=== PATIENT | female | born 1970 | race Caucasian/White ===

== ENCOUNTER 2016-06-16 12:16 | Emergency (ER) | payer MEDICARE, MEDICAID ==
--- OUTSIDE RECORDS SUMMARY | 2016-06-16 12:57 | XMS REPORT | Summary of Care ---
:1970 Author Organization [facility] Address [address] [place] [address] Care Team Providers Name Role Phone Janet Waggoner Primary Care Physician Encounter Date(s): 09/22/15 - 09/22/15 [facility], [address] [place], [place] [address] Discharge Diagnosis: Cellulitis of leg, right Discharge Disposition: 01 Discharged to Home or Self Care Attending Physician: Jesse Graves MD Referring Physician: Jesse Graves MD Vital Signs Most recent to oldest [Reference Range]: 1 Temperature Tympanic [36.6-38.1 DegC] 37.5 DegC (09/22/15 11:33 AM) Temperature C to F 99.5 (09/22/15 11:33 AM) Peripheral Pulse Rate [60-100 bpm] 105 bpm *HI* (09/22/15 11:33 AM) SpO2 98 % (09/22/15 11:33 AM) Blood Pressure [90-130/60-90 mmHg] 115/69mmHg (09/22/15 11:33 AM) Mean Arterial Pressure, Cuff 84 mmHg (09/22/15 11:33 AM) Most recent to oldest [Reference Range]: 1 Height/Length Measured 172 cm (09/22/15 11:33 AM) Weight Dosing 113.70 kg1 (09/22/15 11:36 AM) Weight Measured 113.7 kg (09/22/15 11:33 AM) BSA Measured 2.24 m2 (09/22/15 11:33 AM) Body Mass Index Measured 38.43 kg/m2 (09/22/15 11:33 AM) 1Result Comment: This result was because the dosing weight was either not entered or it is>30 days old. This result is based off: Weight Measured September 22, 2015 11:33:00 CDT by Helen Briones Problem List Condition Effective Dates Status Health Status Informant Arthritis(Confirmed) Active Depression(Confirmed) Active Diabetes mellitus(Confirmed) Active Leg edema, left(Confirmed) Active Osteoarthritis(Confirmed) Active Thyroid disease(Confirmed) Active Allergies, Adverse Reactions, Alerts No Known Allergies Medications Abilify 2 mg, Oral, Daily, 0 Refill(s) Start Date: 08/09/13 Status: Orderedamitriptyline 10 mg oral tablet 1 tab(s), Oral, BID, # 270 tab(s), 0 Refill(s), Start Date: 11/19/14 6:51:00 CDT Start Date: 11/19/14 Status: Orderedbaclofen infuse (3.75MCG/H) by cont intrathecal if route (90mcg/day), 0 Refill(s) Special Instructions: infuse (3.75MCG/H) by cont intrathecal if route (90mcg/day ) Start Date: 08/09/13 Stop Date: 10/16/13 Status: Discontinuedbaclofen 10 mg oral tablet 1 tab(s), Oral, TID, # 270 tab(s), 0 Refill(s) Start Date: 10/16/13 Stop Date: 12/06/13 Status: CompletedBactrim DS 800 mg-160 mg oral tablet 1 tab(s), Oral, BID, X 14 days, # 28 tab(s), 0 Refill(s), Start Date: 09/10/15 10:28:00 CDT, Pharmacy: [place] Start Date: 09/10/15 Stop Date: 09/16/15 Status: DiscontinuedBactrim DS 800 mg-160 mg oral tablet 2 tab(s), Oral, BID, X 10 days, # 40 tab(s), 0 Refill(s), Start Date: 09/16/15 14:17:00 CDT, Pharmacy: [place], [place] Start Date: 09/16/15 Stop Date: 09/26/15 Status: OrderedCalcium 600+D 600 mg-200 intl units oral tablet 1 tab(s), Oral, Daily, 0 Refill(s) Start Date: 08/09/13 Stop Date: 06/20/15 Status: CompletedcefTRIAXone 2 gm, IVPB, Daily, 0 Refill(s), Start Date: 06/26/15 11:20:00 [employer]ATIONS MANAGER Start Date: 06/26/15 Stop Date: 08/04/15 Status: Discontinuedciprofloxacin 500 mg oral tablet 1 tab(s), Oral, q12hr, 2 hours away from vitamin and dairy, # 28 tab(s), 1 Refill(s), Start Date: 08/04/15 11:51:00 CDT, Pharmacy: [place], [place] Special Instructions: 2 hours away from vitamin and dairy Start Date: 08/04/15 Stop Date: 08/14/15 Status: CompletedCoumadin 2 mg oral tablet 1 tab(s), Oral, Daily, 1 po qday max 6 per day, # 90 tab(s), 0 Refill(s), Start Date: 06/01/15 7:21:00 [employer]PERATIONS MANAGER Special Instructions: 1 po qday max 6 per day Start Date: 06/01/15 Stop Date: 07/16/15 Status: DiscontinuedCoumadin 4 mg oral tablet 1 tab(s), Oral, Every other day, alternates with 5mg. every other day., 0 Refill (s), Start Date: 06/20/15 2:29:00 [employer]PERATIONS MANAGER Special Instructions: alternates with 5mg. every other day. Start Date: 06/20/15 Stop Date: 07/16/15 Status: DiscontinuedCymbalta 60 mg oral delayed release capsule 1 cap(s), Oral, Daily, noon, 0 Refill(s), Start Date: 08/09/13 16:27:00 CDT Special Instructions: noon Start Date: 08/09/13 Status: Ordereddiazepam 5 mg oral tablet See Instructions, PRN Every 6 hours as needed., 0 Refill(s) Start Date: 08/31/10 Stop Date: 11/17/14 Status: CompletedDilaudid 2 mg oral tablet 1 tab(s), Oral, Daily, 0 Refill(s) Start Date: 08/09/13 Stop Date: 04/23/14 Status: Discontinueddocusate sodium 100 mg oral capsule 1 cap(s), Oral, TID, PRN as needed for constipation, at bedtime as needed, # 20 cap(s), 0 Refill(s), Start Date: 08/09/13 16:28:00 CDT Special Instructions: at bedtime as needed Start Date: 08/09/13 Status: Orderedesomeprazole 20 mg oral delayed release capsule 0 Refill(s) Start Date: 08/09/13 Stop Date: 10/16/13 Status: DiscontinuedFlexeril 10 mg oral tablet 1 tab(s), Oral, TID, PRN as needed for muscle spasm, # 21 tab(s), 0 Refill(s), Start Date: 04/08/15 16:45:00 [employer]PERATIONS MANAGER Start Date: 04/08/15 Stop Date: 05/18/15 Status: CompletedFlexeril 10 mg oral tablet 1 tab(s), Oral, TID, PRN muscle spasm, # 21 tab(s), 0 Refill(s), Start Date: 11:21:00 [employer] OPERATIONS MANAGER, Pharmacy: [place], [place] Start Date: 06/26/15 Stop Date: 08/14/15 Status: Completedfurosemide 20 mg oral tablet 1 tab(s), Oral, Daily, 0 Refill(s) Start Date: 09/17/13 Stop Date: 10/16/13 Status: Discontinuedfurosemide 20 mg oral tablet 1 tab(s), Oral, Daily, 0 Refill(s) Start Date: 08/09/13 Stop Date: 08/13/13 Status: Completedfurosemide 20 mg oral tablet 1 tab(s), Oral, Daily, 0 Refill(s) Start Date: 10/17/13 Stop Date: 11/17/14 Status: Completedgabapentin 100 mg oral capsule 3 cap(s), Oral, HS, # 90 cap(s), 0 Refill(s), Start Date: 11/17/14 10:54:00 CDT Start Date: 11/17/14 Stop Date: 06/04/15 Status: Discontinuedgabapentin 100 mg oral capsule 2 cap(s), Oral, TID, # 120 cap(s), 0 Refill(s), Start Date: 11/17/14 10:53:00 CDT Start Date: 11/17/14 Status: OrderedLevaquin 500 mg oral tablet 1 tab(s), Oral, Daily, # 14 tab(s), 0 Refill(s), Start Date: 09/14/15 12:57:00 CDT, Pharmacy: [place] Start Date: 09/14/15 Stop Date: 09/16/15 Status: DiscontinuedLipitor 20 mg oral tablet 1 tab(s), Oral, Daily, # 30 tab(s), 0 Refill(s), Start Date: 11/19/14 6:55:00 CDT Start Date: 11/19/14 Status: Orderedlisinopril 2.5 mg oral tablet 1 tab(s), Oral, Daily, # 30 tab(s), 0 Refill(s), Start Date: 11/19/14 6:53:00 CDT Start Date: 11/19/14 Status: Orderedmeloxicam 15 mg oral tablet 1 tab(s), Oral, Daily, 0 Refill(s) Start Date: 08/13/13 Stop Date: 12/06/13 Status: DiscontinuedmetFORMIN 1000 mg oral tablet 1 tab(s), Oral, BID, # 180 tab(s), 0 Refill(s) Start Date: 10/16/13 Stop Date: 06/26/15 Status: DiscontinuedmetroNIDAZOLE 0.75% topical gel 1 leonel, Topical, BID, 0 Refill(s) Start Date: 08/13/13 Stop Date: 04/08/15 Status: Completedminocycline 100 mg oral tablet 1 tab(s), Oral, BID, # 30 tab(s), 0 Refill(s) Start Date: 08/13/13 Stop Date: 11/17/14 Status: CompletedMiraLax 17 gm, Oral, Daily, PRN constipation, 0 Refill(s), Start Date: 08/09/13 16:31: 00 CDT Start Date: 08/09/13 Status: Orderedmirtazapine 15 mg oral tablet 1 tab(s), Oral, HS, 0 Refill(s), Start Date: 05/18/15 8:45:00 [employer]PER[employer] MANAGER Start Date: 05/18/15 Status: Orderedmorphine 15 mg oral tablet 1 tab(s), Oral, Daily, PRN for pain, 0 Refill(s), Start Date: 10/16/13 15:04:00 CDT Start Date: 10/16/13 Stop Date: 06/01/15 Status: Discontinuedmorphine 15 mg oral tablet 1 tab(s), Oral, BID, PRN for pain, 0 Refill(s) Start Date: 12/06/13 Stop Date: 12/06/13 Status: Completedmorphine 15 mg oral tablet 1 tab(s), Oral, Daily, 0 Refill(s), Start Date: 06/01/15 7:37:00 [employer]PERATIONS MANAGER Start Date: 06/01/15 Stop Date: 06/26/15 Status: Discontinuedmorphine 30 mg oral tablet 1 tab(s), Oral, BID, 0 Refill(s), Start Date: 08/14/15 9:00:00 CDT Start Date: 08/14/15 Status: Orderedmorphine 30 mg/12 hr oral tablet, extended release 1 tab(s), Oral, q12hr, 0 Refill(s) Start Date: 12/06/13 Stop Date: 06/26/15 Status: Discontinuedmorphine immediate release 15 mg, Oral, Daily, at noon, 0 Refill(s), Start Date: 08/14/15 9:00:00 CDT Special Instructions: at noon Start Date: 08/14/15 Status: Orderedmultivitamin 1 cap, Daily, 0 Refill(s) Start Date: 08/09/13 Status: Orderednabumetone 750 mg oral tablet 1 tab(s), Oral, BID, 0 Refill(s), Start Date: 05/18/15 8:46:00 [employer] OPERATIONS MANAGER Start Date: 05/18/15 Stop Date: 06/04/15 Status: Discontinuednabumetone 750 mg oral tablet 1 tab(s), Oral, Daily, 0 Refill(s), Start Date: 07/16/15 11:42:00 [employer] OPERATIONS MANAGER Start Date: 07/16/15 Status: Orderednaproxen 500 mg (as sodium) oral tablet, extended release 1 tab(s), Oral, BID, with food only takes when migraine, 0 Refill(s) Special Instructions: with food only takes when migraine Start Date: 08/09/13 Stop Date: 11/17/14 Status: CompletedNeurontin 600 mg oral tablet 2 tab(s), Oral, TID, 0 Refill(s) Start Date: 08/09/13 Stop Date: 11/17/14 Status: Completedomeprazole 20 mg oral delayed release capsule 1 cap(s), Oral, Daily, PRN acid, stomach, 0 Refill(s), Start Date: 09/17/13 13: 07:00 CDT Start Date: 09/17/13 Status: OrderedPercocet 5/325 oral tablet 2 tab(s), Oral, q6hr, PRN for pain, not to exceed 4000 mg acetaminophen per day , # 120 tab(s), 0 Refill(s), Start Date: 06/01/15 7:22:00 [employer] OPERATIONS MANAGER Special Instructions: not to exceed 4000 mg acetaminophen per day Start Date: 06/01/15 Stop Date: 06/16/15 Status: CompletedPercocet 5/325 oral tablet See Instructions, PRN for pain, 1-2 tab(s) Oral q6hr not to exceed 4000 mg acetaminophen per day, # 60 tab(s), 0 Refill(s), Start Date: 09/16/15 12:50:40 CDT, Pharmacy: [place], [place] Special Instructions: 1-2 tab(s) Oral q6hr not to exceed 4000 mg acetaminophen per day Start Date: 09/16/15 Status: OrderedPercocet 5/325 oral tablet 1 tab(s), Oral, q4hr, # 60 tab(s), 0 Refill(s), other reason (Rx) Start Date: 10/21/13 Stop Date: 10/29/13 Status: CompletedPercocet 5/325 oral tablet 1-2 tab(s), Oral, q4hr, # 42 tab(s), 0 Refill(s), other reason (Rx) Start Date: 10/29/13 Stop Date: 12/06/13 Status: CompletedPercocet 5/325 oral tablet 2 tab(s), Oral, q6hr, PRN for pain, not to exceed 4000 mg acetaminophen per day , # 120 tab(s), 0 Refill(s), Start Date: 06/16/15 11:04:54 [employer]STATE OPERATIONS MANAGER, Pharmacy: [place], [place] Special Instructions: not to exceed 4000 mg acetaminophen per day Start Date: 06/16/15 Stop Date: 07/02/15 Status: CompletedPercocet 5/325 oral tablet 2 tab(s), Oral, q6hr, PRN for pain, not to exceed 4000 mg acetaminophen per day , # 60 tab(s), 0 Refill(s), Start Date: 07/30/15 9:36:54 CDT Special Instructions: not to exceed 4000 mg acetaminophen per day Start Date: 07/30/15 Status: OrderedPercocet 5/325 oral tablet 2 tab(s), Oral, q6hr, PRN for pain, not to exceed 4000 mg acetaminophen per day , # 60 tab(s), 0 Refill(s), Start Date: 07/02/15 15:23:31 [employer] OPERATIONS MANAGER Special Instructions: not to exceed 4000 mg acetaminophen per day Start Date: 07/02/15 Stop Date: 07/30/15 Status: CompletedPercocet 5/325 oral tablet See Instructions, PRN for pain, 1-2 tab(s) Oral q6hr not to exceed 4000 mg acetaminophen per day, # 60 tab(s), 0 Refill(s), Start Date: 08/17/15 12:19:00 CDT, Pharmacy: [place], [place] Special Instructions: 1-2 tab(s) Oral q6hr not to exceed 4000 mg acetaminophen per day Start Date: 08/17/15 Stop Date: 09/16/15 Status: CompletedSUMAtriptan 100 mg oral tablet 1 tab(s), Oral, Daily, PRN for migraine headache, may repeat dose after 2 hours up to a maximum of 200 mg in 24 hours, 0 Refill(s) Special Instructions: may repeat dose after 2 hours up to a maximum of 200 mg in 24 hours Start Date: 08/09/13 Status: OrderedSynthroid 75 mcg (0.075 mg) oral tablet 1 tab(s), Oral, Daily Start Date: 08/09/13 Status: OrderedValium 5 mg oral tablet 1 tab(s), Oral, q6hr, PRN as needed for anxiety, 0 Refill(s) Start Date: 08/09/13 Stop Date: 10/16/13 Status: DiscontinuedVicodin 5 mg-325 mg oral tablet 1 tablet, Oral, q6hr interval, # 60 tab(s), 0 Refill(s), other reason (Rx) Start Date: 08/13/13 Stop Date: 12/06/13 Status: Completedwarfarin 5 mg oral tablet 1 tab(s), Oral, Every other day, is due to take 5mg on , 0 Refill(s), Start Date: 06/20/15 2:31:00 [employer]PERATIONS MANAGER Special Instructions: is due to take 5mg on Start Date: 06/20/15 Stop Date: 07/16/15 Status: Discontinuedwarfarin 5 mg oral tablet See Instructions, Take 1 tab orally at 6pm evening before surgery, # 1 tab(s), 0 Refill(s), Start Date: 04/16/15 11:33:00 [employer] OPERATIONS MANAGER, Pharmacy: [place], [place] Special Instructions: Take 1 tab orally at 6pm evening before surgery Start Date: 04/16/15 Stop Date: 06/01/15 Status: DiscontinuedXanax 0.5 mg oral tablet 1 tab(s), Oral, PRN for anxiety, 0 Refill(s) Start Date: 08/09/13 Stop Date: 11/17/14 Status: CompletedZanaflex 4 mg oral capsule 1 cap(s), Oral, Daily, 0 Refill(s) Start Date: 08/09/13 Stop Date: 12/06/13 Status: Completed Results No data available for this section Immunizations Vaccine Date Refusal Reason influenza virus vaccine, inactivated 03/09/15 Procedures Procedure Date Related Diagnosis Body Site Aspiration (Right, Knee R)1 08/17/15 Injection Joint - OR2 08/17/15 Manipulation Joint (Right, Knee R)3 08/17/15 Incision And Drainage (Right, Knee R)4 06/22/15 Revision Arthroplasty Knee (SCIP) (Right, Knee 06/22/15 R)5 Arthroplasty Knee Total (SCIP) (Right, Knee R)6 06/01/15 Arthroscopy Knee (Right, Knee R)7 12/10/14 Arthroscopy Knee (Left, Knee L)8 11/19/14 Arthroscopy Knee (Right, Knee R)9 10/21/13 Vaginal hysterectomy 04/20/11 Neck repair 2011 Spinal operation 2009 Arthroscopy of knee10 1auto-populated from documented surgical [id number] from documented surgical [id number] from documented surgical [id number] from documented surgical [id number] from documented surgical rauh1ksnv- populated from documented surgical [id number] from documented surgical [id number] from documented surgical [id number] from documented surgical [id number] Social History No data available for this section Assessment and Plan No data available for this section
--- OUTSIDE RECORDS SUMMARY | 2016-06-16 12:57 | XMS REPORT | Continuity of Care Document ---
:1970 Author Organization [facility] ([facility]) Address [address] [place] [address] Phone [phone] Care Team Providers Name Role Phone Myrna Christian Primary Care Provider [phone] Source Comments This disclosure is being made pursuant to the Care Everywhere program, applicable federal and state laws, and may not contain all informaitonavailable regarding this patient.[facility] ([facility]) Active Allergies and Adverse Reactions Allergen Noted Date Severity Reactions Comments Chlorhexidine 05/25/2010 Pruritus Morphine Pruritus Current Medications Prescription Sig. Disp. Refills Start Date End Date Status LEVOTHYROXINE SODIUM Take 0.075 mg by Active (SYNTHROID PO) mouth daily. ALPRAZolam (XANAX) 0.5 take 0.5 mg by mouth Active mg tablet as needed. DULoxetine (CYMBALTA) Take 120 mg by mouth Active 60 mg capsule daily. Indications: Generalized Anxiety Disorder, Major Depressive Disorder omeprazole (PRILOSEC) Take 1 Cap by mouth 30 Cap 6 01/22/2010 Active 20 mg extended release as needed. Only capsule takes with treximet. Indications: Prevention of Stress Ulcer CHOLECALCIFEROL, Take by mouth. Active VITAMIN D3, (VITAMIN D-3 PO) multivitamin tablet Take 1 Tab by mouth Active daily. diazepam (VALIUM) 5 mg Take 1 Tab by mouth 30 Tab 0 05/28/2010 Active tablet every 6 hours as needed (Muscle spasm). Indications: Muscle Spasm HYDROmorphone Take 1-2 Tabs by 60 Tab 0 05/28/2010 Active (DILAUDID) 2 mg tablet mouth every 4 hours as needed. Indications: Pain Sumatriptan-Naproxen Take 1 Tab by mouth Active (TREXIMET) 85-500 mg as needed. Tab baclofen (LIORESAL) 10 Take 1 Tab by mouth 90 Tab 3 07/28/2010 Active mg tablet 3 times daily. Indications: Muscle Spasticity of Spinal Origin gabapentin 600 mg Take 2 Tabs by mouth 180 Tab 5 08/16/2010 Active tablet 3 times daily. Indications: Neuropathic Pain tiZANidine 4 mg tablet Take 1 Tab by mouth 90 Tab 6 08/16/2010 Active 3 times daily. Indications: Muscle Spasm naproxen sodium 220 mg Take 1 Tab by mouth Active Cap 2 times daily. DOCUSATE CALCIUM Take by mouth as Active (STOOL SOFTENER PO) needed. naproxen 500 mg tablet Take 1 Tab by mouth 60 Tab 3 06/26/2012 Active 2 times daily with meals as needed. Indications: PAIN mirtazapine 15 mg Take 15 mg by mouth Active tablet at bedtime. metFORMIN 1,000 mg XR Take 1,000 mg by Active tablet mouth 2 times daily. ARIPIPRAZOLE (ABILIFY Take by mouth. Active PO) OTHER Sleeping Aid, unsure Active of medication name. OTHER Taking an Active anti-inflammatory medication. Unsure of name. Active Problems Problem Noted Date Ankle pain 11/29/2012 Foot pain 11/29/2012 Knee pain 06/27/2012 Stenosis of cervical spine 05/26/2010 Overview: Status post C4-C7 ACDF 05/25/10 GERD (gastroesophageal reflux disease) 01/27/2010 Hypothyroidism 01/27/2010 Depression 01/27/2010 Migraines 01/27/2010 Insomnia 01/27/2010 Anxiety state, unspecified 01/27/2010 Arm numbness 11/16/2009 Cervicalgia 09/01/2005 Lumbago 09/01/2005 Immunizations Name Dates Previously Given Next Due Influenza, PF 02/12/2010 Social History Tobacco Use Types Packs/Day Years Used Date Current Every Day Smoker 1 10 Smokeless Tobacco: Never Used Alcohol Use Drinks/Week oz/Week Comments No Last Filed Vital Signs Vital Sign Reading Time Taken Blood Pressure 134/86 01/03/2013 3:20 PM CDT Pulse 86 04/04/2011 2:34 PM [employer] Temperature 37.1 C (98.8 F) 01/03/2013 3:20 PM CDT Respiratory Rate 26 02/08/2011 12:47 PM CDT Height 1.74 m (5' 8.5") 01/03/2013 3:20 PM CDT Weight 110.406 kg (243 lb 6.4 oz) 01/03/2013 3:20 PM CDT Body Mass Index 36.47 01/03/2013 3:20 PM CDT Oxygen Saturation 100% 02/08/2011 12:59 PM CDT Plan of Care Health Maintenance Due Date Last Done Comments Hepatitis B Vaccine (1 of 3 - Primary 1970 Series) Tdap Vaccine 07/28/1979 MMR Vaccine 1986 Td Vaccine 1986 Pneumococcal Vaccine (1 of 1 - PPSV23) 07/28/1987 Mammogram 11/16/2010 11/16/2009 Cervical Cancer Screening 02/12/2013 02/12/2010 Lipid Disorder Screening 02/12/2015 02/12/2010, 01/27/2010 Influenza Vaccine: Seasonal (#1) 12/07/2015 02/12/2010 Results from Last 3 Months Not on file
--- OUTSIDE RECORDS SUMMARY | 2016-06-16 12:58 | XMS REPORT | Summary of Care ---
:1970 Author Organization [facility] Address [address] [place] [id number] Care Team Providers Name Role Phone Janet Waggoner Primary Care Physician Encounter Date(s): 09/22/15 - 09/22/[address] [address] Discharge Disposition: 01 Discharged to Home or Self Care Attending Physician: Jesse Graves MD Vital Signs No data available for this section Problem List Condition Effective Dates Status Health [...] Refill(s), Start Date: 09/10/15 10:28:00 CDT, Pharmacy: [place], [place] Start Date: 09/10/15 Stop Date: 09/16/15 Status: DiscontinuedBactrim DS 800 mg-160 mg oral tablet 2 tab(s), Oral, BID, X 10 days, # 40 tab(s), 0 Refill(s), Start Date: 09/16/15 14:17:00 CDT, Pharmacy: [place], [place] Start Date: 09/16/15 Stop Date: 09/26/15 Status: OrderedCalcium 600+D 600 mg-200 intl units oral tablet 1 tab(s), Oral, Daily, 0 Refill(s) Start Date: 08/09/13 Stop Date: 06/20/15 Status: CompletedcefTRIAXone 2 gm, IVPB, Daily, 0 Refill(s), Start Date: 06/26/15 11:20:00 [employer] Start Date: 06/26/15 Stop Date: 08/04/15 Status: Discontinuedciprofloxacin 500 mg oral tablet 1 tab(s), Oral, q12hr, 2 hours away from vitamin and dairy, # 28 tab(s), 1 Refill(s), Start Date: 08/04/15 11:51:00 CDT, Pharmacy: [place], [place] Special Instructions: 2 hours away from vitamin and dairy Start Date: 08/04/15 Stop Date: 08/14/15 Status: CompletedCoumadin 2 mg oral tablet 1 tab(s), Oral, Daily, 1 po qday max 6 per day, # 90 tab(s), 0 Refill(s), Start Date: 06/01/15 7:21:00 [employer] Special Instructions: 1 po qday max 6 per day Start Date: 06/01/15 Stop Date: 07/16/15 Status: DiscontinuedCoumadin 4 mg oral tablet 1 tab(s), Oral, Every other day, alternates with 5mg. every other day., 0 Refill (s), Start Date: 06/20/15 2:29:00 [employer] Special Instructions: alternates with 5mg. every other [...] tab(s), 0 Refill(s), Start Date: 04/08/15 16:45:00 [employer] Start Date: 04/08/15 Stop Date: 05/18/15 Status: CompletedFlexeril 10 mg oral tablet 1 tab(s), Oral, TID, PRN muscle spasm, # 21 tab(s), 0 Refill(s), Start Date: 11:21:00 [employer], Pharmacy: [place], [place] Start Date: 06/26/15 Stop Date: 08/14/15 [...] Refill(s), Start Date: 09/14/15 12:57:00 CDT, Pharmacy: [place] Start Date: 09/14/15 Stop Date: 09/16/15 [...] HS, 0 Refill(s), Start Date: 05/18/15 8:45:00 [employer] Start Date: 05/18/15 Status: Orderedmorphine 15 mg [...] Daily, 0 Refill(s), Start Date: 06/01/15 7:37:00 [employer] Start Date: 06/01/15 Stop Date: 06/26/15 Status: [...] BID, 0 Refill(s), Start Date: 05/18/15 8:46:00 [employer] Start Date: 05/18/15 Stop Date: 06/04/15 Status: Discontinuednabumetone 750 mg oral tablet 1 tab(s), Oral, Daily, 0 Refill(s), Start Date: 07/16/15 11:42:00 [employer] Start Date: 07/16/15 Status: Orderednaproxen 500 mg [...] tab(s), 0 Refill(s), Start Date: 06/01/15 7:22:00 [employer] Special Instructions: not to exceed 4000 mg acetaminophen per day Start Date: 06/01/15 Stop Date: 06/16/15 Status: CompletedPercocet 5/325 oral tablet See Instructions, PRN for pain, 1-2 tab(s) Oral q6hr not to exceed 4000 mg acetaminophen per day, # 60 tab(s), 0 Refill(s), Start Date: 09/16/15 12:50:40 CDT, Pharmacy: [place], [place] Special Instructions: 1-2 tab(s) Oral q6hr [...] tab(s), 0 Refill(s), Start Date: 06/16/15 11:04:54 [employer], Pharmacy: [place] Special Instructions: not to exceed 4000 [...] tab(s), 0 Refill(s), Start Date: 07/02/15 15:23:31 [employer] Special Instructions: not to exceed 4000 mg acetaminophen per day Start Date: 07/02/15 Stop Date: 07/30/15 Status: CompletedPercocet 5/325 oral tablet See Instructions, PRN for pain, 1-2 tab(s) Oral q6hr not to exceed 4000 mg acetaminophen per day, # 60 tab(s), 0 Refill(s), Start Date: 08/17/15 12:19:00 CDT, Pharmacy: [place] Special Instructions: 1-2 tab(s) Oral q6hr [...] , 0 Refill(s), Start Date: 06/20/15 2:31:00 [employer] Special Instructions: is due to take 5mg on Start Date: 06/20/15 Stop Date: 07/16/15 Status: Discontinuedwarfarin 5 mg oral tablet See Instructions, Take 1 tab orally at 6pm evening before surgery, # 1 tab(s), 0 Refill(s), Start Date: 04/16/15 11:33:00 [employer], Pharmacy: [place], [place] Special Instructions: Take 1 tab orally at 6pm evening before surgery Start Date: 04/16/15 Stop Date: 06/01/15 Status: DiscontinuedXanax 0.5 mg oral tablet 1 tab(s), Oral, PRN for anxiety, 0 Refill(s) Start Date: 08/09/13 Stop Date: 11/17/14 Status: CompletedZanaflex 4 mg oral capsule 1 cap(s), Oral, Daily, 0 Refill(s) Start Date: 08/09/13 Stop Date: 12/06/13 Status: Completed Results Patient Viewable Results Most recent to oldest [Reference Range]: 1 WBC [4.8-10.8 thou/mm3] 5.6 thou/mm3 (09/22/15 12:02 PM) RBC [4.20-5.40 Mil/mm3] 4.82 Mil/mm3 (09/22/15 12:02 PM) Hgb [12.0-16.0 g/dL] 13.7 g/dL (09/22/15:02 PM) Hct [37.0-47.0 %] 43.0 % (09/22/15: PM) MCV [80.0-94.0 fL] 89.2 fL (09/22/15: PM) MCH [25.0-38.0 pg/cell] 28.4 pg/cell (09/22/15: PM) MCHC [31.0-37.0 g/dL] 31.9 g/dL (09/22/15: PM) RDW [1.0-48.0 fL] 48.6 fL *HI* (09/22/15:02 PM) Platelet [130-400 thou/mm3] 254 thou/mm3 (09/22/15 12:02 PM) Neutrophils % Auto [50.0-75.0 %] 62.9 % (09/22/15 12:02 PM) Immature Granulocyte Auto [0.1-2.0 %] 0.4 % (09/22/15: PM) Lymphocytes % Auto [15.0-41.0 %] 27.7 % (09/22/15:02 PM) Monocytes % Auto [2.0-10.0 %] 7.4 % (09/22/15 12:02 PM) Eosinophils % Auto [0.0-6.0 %] 1.4 % (09/22/15: PM) Basophil % Auto [0.0-1.0 %] 0.2 % (09/22/15:02 PM) Neutrophils Absolute [1.5-5.9 thou/mm3] 3.6 thou/mm3 (09/22/15 12:02 PM) Immature Gran Absolute [0.01-0.03 thou/mm3] 0.02 thou/mm3 (09/22/15 12:02 PM) Lymphocytes Absolute [1.5-4.0 thou/mm3] 1.6 thou/mm3 (09/22/15 12:02 PM) Monocytes Absolute [0.0-0.9 thou/mm3] 0.4 thou/mm3 (09/22/15 12:02 PM) Eosinophil Absolute [0.0-0.7 thou/mm3] 0.1 thou/mm3 (09/22/15: PM) Basophil Absolute [0.0-0.2 thou/mm3] 0.0 thou/mm3 (09/22/15 12:02 PM) Sed Rate [0-20 mm/hr] 22 mm/hr *HI* (09/22/15: PM) Sodium Lvl [135-144 mEq/L] 138 mEq/L (09/22/15: PM) Potassium Lvl [3.3-4.8 mEq/L] 4.1 mEq/L (09/22/15: PM) Chloride Lvl [98-107 mEq/L] 100 mEq/L (09/22/15:02 PM) Bicarbonate Lvl [22-30 mmol/L] 26 mmol/L (09/22/15 PM) Anion Gap [10.0-20.0] 16.1 (09/22/15 12:02 PM) Glucose Lvl [70-108 mg/dL] 157 mg/dL *HI* (09/22/15: PM) BUN [7-21 mg/dL] 8 mg/dL (09/22/15:02 PM) Creatinine Lvl [0.50-1.20 mg/dL] 0.65 mg/dL (09/22/15 12:02 PM) BUN/Creat Ratio 12.3 *NA* (09/22/15 12: PM) eGFR AA [>=60] >60 (09/22/15 12:02 PM) eGFR REI [>=60] >60 (09/22/15 12:02 PM) Calcium Lvl [8.6-10.2 mg/dL] 8.9 mg/dL (09/22/15:02 PM) C Reactive Protein [0.0-0.4 mg/dL] 2.4 mg/dL *HI* (09/22/15 12:02 PM) Estimated Creatinine Clearance 140.92 mL/min (09/22/15 12:32 PM) Immunizations Vaccine Date Refusal Reason influenza virus [...] R)9 10/21/13 Vaginal hysterectomy 04/20/11 Neck repair 2010 Spinal operation 2009 Arthroscopy of knee10 1auto-populated from documented surgical [id number] from documented surgical [id number] from documented surgical [id number] from documented surgical [id number] from documented surgical [id number]- populated from documented surgical [id number] from documented surgical [id number] from documented surgical [id number] from documented surgical [id number] Social History No data available for this section Assessment and Plan No data available for this section
[2016-06-16] MEDS ORDERED: ALBUTEROL SULFATE/IPRATROPIUM 3 ML NEBU IH ONE ×2 (13:00→13:04)
[2016-06-16 13:53] VITALS: BP 135/85
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
== END 2016-06-16 13:53 | disposition home or self-care (01) ==
LOC: ER 12:16
DX: J40 Bronchitis, not specified as acute or chronic (principal); J32.9 Chronic sinusitis, unspecified; E11.9 Type 2 diabetes mellitus without complications; E03.9 Hypothyroidism, unspecified; J45.909 Unspecified asthma, uncomplicated; F41.9 Anxiety disorder, unspecified; F32.9 Major depressive disorder, single episode, unspecified; Z87.891 Personal history of nicotine dependence